=== PATIENT | female | born 1960 | race Caucasian/White ===

== ENCOUNTER 2017-10-14 16:31 | Emergency (ER) | payer BC ==
[~2017-10-14] VITALS: Ht 152.4 cm; Wt 47.2 kg
[~2017-10-14 16:31] MED LIST: ALEN70 PO; LEVSOD50 PO; LEVSOD75 PO
[2017-10-14] MEDS ORDERED: Colace100 MG PO (21:10)
== END 2017-10-14 21:23 | disposition home or self-care (01) ==
LOC: ER 16:31
DX: K59.00 Constipation, unspecified (principal); Z88.8 Allergy status to other drugs, medicaments and biological substances; Z79.899 Other long term (current) drug therapy
CPT/HCPCS: 74018; 99283